=== PATIENT | female | born 1955 | race Two or more races ===

== ENCOUNTER 2017-10-23 08:59 | Outpatient (CLI) | payer OTHER | END 2017-10-23 09:07 | disposition home or self-care (01) | LOC: RAD 501 08:59 | DX: J30.89 Other allergic rhinitis (principal); R05 Cough; R06.00 Dyspnea, unspecified ==

== ENCOUNTER 2018-05-14 15:48 | Outpatient (CLI) | payer OTHER | END 2018-05-14 16:14 | disposition home or self-care (01) | LOC: LAB 15:48 | DX: N30.00 Acute cystitis without hematuria (principal); R31.29 Other microscopic hematuria ==

== ENCOUNTER → 2018-05-15 15:00 | Outpatient (CLI) | payer OTHER | END | disposition home or self-care (01) | LOC: EDBD 15:00 → LAB 15:00 | DX: N30.00 Acute cystitis without hematuria (principal); R31.29 Other microscopic hematuria ==

== ENCOUNTER 2018-05-18 08:21 | Outpatient (CLI) | payer OTHER | END 2018-05-18 08:36 | disposition home or self-care (01) | LOC: TOM 08:21 | DX: R31.0 Gross hematuria (principal) ==

== ENCOUNTER 2018-05-28 05:55 | Day surgery (SDC) | payer OTHER | END 2018-05-28 12:05 | disposition home or self-care (01) | LOC: EDBD → CIR.AMB 05:55 | DX: C67.4 Malignant neoplasm of posterior wall of bladder (principal) ==

== ENCOUNTER 2018-06-11 14:54 | Outpatient (CLI) | payer OTHER | END 2018-06-11 15:00 | disposition home or self-care (01) | LOC: LAB 14:54 | DX: N30.00 Acute cystitis without hematuria (principal) ==

== ENCOUNTER 2018-09-06 07:38 | Outpatient (CLI) | payer OTHER | END 2018-09-06 13:20 | disposition home or self-care (01) | LOC: LAB 07:38 | DX: E03.8 Other specified hypothyroidism (principal); D50.8 Other iron deficiency anemias; E78.2 Mixed hyperlipidemia; I11.9 Hypertensive heart disease without heart failure; E56.8 Deficiency of other vitamins; N39.0 Urinary tract infection, site not specified; Z12.11 Encounter for screening for malignant neoplasm of colon; E55.9 Vitamin D deficiency, unspecified; N19 Unspecified kidney failure; E11.9 Type 2 diabetes mellitus without complications; R80.8 Other proteinuria; C18.0 Malignant neoplasm of cecum; K92.1 Melena ==

== ENCOUNTER 2018-09-07 10:19 | Outpatient (CLI) | payer OTHER | END 2018-09-07 10:29 | disposition home or self-care (01) | LOC: LAB 10:19 | DX: D50.8 Other iron deficiency anemias (principal); E03.8 Other specified hypothyroidism; E78.2 Mixed hyperlipidemia; I11.9 Hypertensive heart disease without heart failure; E56.8 Deficiency of other vitamins; N39.0 Urinary tract infection, site not specified; Z12.11 Encounter for screening for malignant neoplasm of colon; E55.9 Vitamin D deficiency, unspecified; N19 Unspecified kidney failure; E11.9 Type 2 diabetes mellitus without complications; R80.8 Other proteinuria; C18.0 Malignant neoplasm of cecum; K92.1 Melena ==

== ENCOUNTER → 2018-10-18 | Outpatient (CLI) | payer OTHER | END | disposition home or self-care (01) | LOC: MAMO-SONO 10:27 | DX: N60.11 Diffuse cystic mastopathy of right breast (principal); N60.12 Diffuse cystic mastopathy of left breast; Z12.31 Encounter for screening mammogram for malignant neoplasm of breast ==

== ENCOUNTER 2019-12-01 14:43 | Emergency (ER) | payer OTHER ==
[~2019-12-01] VITALS: Ht 172.7 cm; Wt 117.9 kg
[2019-12-01] MEDS ORDERED: FENOFIBRATE160 MG PO (15:19)
[2019-12-01] MEDS ORDERED: LOSARTAN POTASS50 MG PO (15:20)
[2019-12-01] MEDS ORDERED: OPTIMAL D31250 MCG PO (15:20)
[2019-12-01] MEDS ORDERED: KETO10TA2 PO (21:16)
== END 2019-12-01 21:25 | disposition home or self-care (01) ==
LOC: ER 14:43
DX: M25.562 Pain in left knee (principal)

== ENCOUNTER → 2020-02-15 12:26 | Outpatient (CLI) | payer OTHER ==
[~2020-02-15 12:26] MED LIST: FENOFIBRATE160 MG PO; KETO10TA2 PO; LOSARTAN POTASS50 MG PO; OPTIMAL D31250 MCG PO
== END | disposition home or self-care (01) ==
LOC: LAB 12:26
PROVIDERS: ATTEND Urology
DX: R31.1 Benign essential microscopic hematuria (principal)

== ENCOUNTER 2020-02-16 07:27 | Outpatient (CLI) | payer OTHER | END 2020-02-16 07:44 | disposition home or self-care (01) | LOC: TOM 07:27 | PROVIDERS: ATTEND Urology | DX: R31.0 Gross hematuria (principal); C67.8 Malignant neoplasm of overlapping sites of bladder ==

== ENCOUNTER → 2020-05-14 | Outpatient (CLI) | payer OTHER | END | disposition home or self-care (01) | LOC: MRI 14:45 | PROVIDERS: ATTEND Orthopaedic Surgery | DX: M25.461 Effusion, right knee (principal); M25.561 Pain in right knee | CPT/HCPCS: 73721 ==

== ENCOUNTER 2021-06-12 15:36 | Outpatient (CLI) | payer OTHER | END 2021-06-12 15:42 | disposition home or self-care (01) | LOC: LAB 15:36 | PROVIDERS: ATTEND Radiology Diagnostic Radiology | DX: C67.9 Malignant neoplasm of bladder, unspecified (principal) ==

== ENCOUNTER 2021-06-18 08:46 | Outpatient (CLI) | payer OTHER | END 2021-06-18 09:00 | disposition home or self-care (01) | LOC: TOM 08:46 | PROVIDERS: ATTEND Urology | DX: C67.9 Malignant neoplasm of bladder, unspecified (principal) ==

== ENCOUNTER 2021-09-20 06:49 | Day surgery (SDC) | payer OTHER | END 2021-09-20 13:55 | disposition home or self-care (01) | LOC: CIR.AMB 06:49 | PROVIDERS: ATTEND Urology | DX: N30.20 Other chronic cystitis without hematuria (principal); Z20.822 Contact with and (suspected) exposure to COVID-19; I10 Essential (primary) hypertension; Z86.16 Personal history of COVID-19; Z87.891 Personal history of nicotine dependence; E66.9 Obesity, unspecified; C67.4 Malignant neoplasm of posterior wall of bladder ==

== ENCOUNTER 2021-12-28 07:36 | Outpatient (CLI) | payer OTHER | END 2021-12-28 23:00 | disposition home or self-care (01) | LOC: LAB 07:36 | PROVIDERS: ATTEND Internal Medicine Geriatric Medicine | DX: D50.9 Iron deficiency anemia, unspecified (principal); E03.9 Hypothyroidism, unspecified; E78.2 Mixed hyperlipidemia; I11.9 Hypertensive heart disease without heart failure; N39.0 Urinary tract infection, site not specified; Z12.11 Encounter for screening for malignant neoplasm of colon; R19.5 Other fecal abnormalities; E55.9 Vitamin D deficiency, unspecified; N19 Unspecified kidney failure; E11.9 Type 2 diabetes mellitus without complications ==

== ENCOUNTER 2022-01-27 07:20 | Outpatient (CLI) | payer OTHER | END 2022-01-27 07:28 | disposition home or self-care (01) | LOC: LAB 07:20 | PROVIDERS: ATTEND Urology | DX: R31.1 Benign essential microscopic hematuria (principal); N30.00 Acute cystitis without hematuria ==

== ENCOUNTER 2022-01-29 07:18 | Outpatient (CLI) | payer OTHER | END 2022-01-29 15:12 | disposition home or self-care (01) | LOC: TOM 07:18 | PROVIDERS: ATTEND Urology | DX: C67.9 Malignant neoplasm of bladder, unspecified (principal) ==

== ENCOUNTER → 2022-06-16 07:11 | Outpatient (CLI) | payer OTHER | END | disposition home or self-care (01) | LOC: LAB 07:11 | PROVIDERS: ATTEND Internal Medicine Geriatric Medicine | DX: D50.9 Iron deficiency anemia, unspecified (principal); E03.9 Hypothyroidism, unspecified; E78.2 Mixed hyperlipidemia; I11.9 Hypertensive heart disease without heart failure; E56.8 Deficiency of other vitamins; N39.0 Urinary tract infection, site not specified; Z12.11 Encounter for screening for malignant neoplasm of colon; R19.5 Other fecal abnormalities; E55.9 Vitamin D deficiency, unspecified; N19 Unspecified kidney failure; E11.9 Type 2 diabetes mellitus without complications ==

== ENCOUNTER 2022-07-01 12:46 | Outpatient (CLI) | payer OTHER | END 2022-07-01 12:52 | disposition home or self-care (01) | LOC: MAMO-SONO 12:46 | PROVIDERS: ATTEND Internal Medicine Geriatric Medicine | DX: Z12.31 Encounter for screening mammogram for malignant neoplasm of breast (principal); C50.919 Malignant neoplasm of unspecified site of unspecified female breast; N63.0 Unspecified lump in unspecified breast; N64.4 Mastodynia; N60.12 Diffuse cystic mastopathy of left breast; N60.11 Diffuse cystic mastopathy of right breast ==

== ENCOUNTER 2022-08-01 13:23 | Outpatient (CLI) | payer OTHER | END 2022-08-01 13:44 | disposition home or self-care (01) | LOC: SONOGRAMA 13:23 | PROVIDERS: ATTEND Surgery | DX: N60.11 Diffuse cystic mastopathy of right breast (principal) ==

== ENCOUNTER 2022-09-30 06:12 | Outpatient (CLI) | payer OTHER | END 2022-09-30 06:24 | disposition home or self-care (01) | LOC: LAB 06:12 | PROVIDERS: ATTEND Internal Medicine | DX: C50.811 Malignant neoplasm of overlapping sites of right female breast (principal) ==

== ENCOUNTER 2022-10-01 07:11 | Outpatient (CLI) | payer OTHER | END 2022-10-01 07:16 | disposition home or self-care (01) | LOC: NUCLEAR 07:11 | PROVIDERS: ATTEND Internal Medicine | DX: C50.811 Malignant neoplasm of overlapping sites of right female breast (principal) ==

== ENCOUNTER 2022-10-02 07:33 | Outpatient (CLI) | payer OTHER | END 2022-10-02 07:58 | disposition home or self-care (01) | LOC: TOM 07:33 | PROVIDERS: ATTEND Internal Medicine | DX: C50.811 Malignant neoplasm of overlapping sites of right female breast (principal) ==

== ENCOUNTER 2022-12-03 13:31 | Emergency (ER) | payer OTHER ==
[~2022-12-03] VITALS: Ht 175.3 cm; Wt 98.9 kg
[2022-12-03] MEDS ORDERED: ZOFRAN8 MG PO (20:55)
[2022-12-03] MEDS ORDERED: PEPCID20 MG PO (20:55)
== END 2022-12-03 21:16 | disposition home or self-care (01) ==
LOC: ER 13:31
PROVIDERS: General Practice
DX: K29.00 Acute gastritis without bleeding (principal); Z20.822 Contact with and (suspected) exposure to COVID-19

== ENCOUNTER → 2023-05-14 07:48 | Outpatient (CLI) | payer OTHER ==
[~2023-05-14 07:48] MED LIST changes: +PEPCID20 MG PO; +ZOFRAN8 MG PO
[2023-05-14 08:30] LABS: PH,URINE 5.5 (5.0-8.0); URINE APPEARANCE Clear; URINE BACTERIA 25.1 uL (0.0-1933); URINE BILIRRUBIN Negative (NEGATIVE); URINE BLOOD Large; URINE COLOR Yellow; URINE GLUCOSE Negative (NEGATIVE); URINE LEUKOCYTE Trace; URINE NITRATE Negative; URINE PROTEIN Negative (NEGATIVE); URINE RBC 243.4 uL (0.0-20.8); URINE UROBILINOGEN 0.2 E.U./dl
[2023-05-14 08:31] LABS: HEMATOCRIT 28.5 % (36.0-45.00); HEMOGLOBIN 9.7 g/dL (12.0-15.00); MEAN CELL VOLUME 86.4 fL (80.00-100.00); MEAN CORPUSCULAR HEMOGLOBIN 29.5 pg (27.00-32.0); MEAN CORPUSCULAR HGB CONC 34.1 g/dl (32.0-36.0); PLATELET COUNT 229 K/uL (150-450); RED CELL DISTRIBUTION WIDTH 13.7 % (11.5-14.5)
[2023-05-14 09:15] LABS: ALBUMIN 3.9 gm/dL (3.4-5.0); BILIRUBIN TOTAL 0.37 mg/dL (0.3-1.2); CALCIUM 9.1 mg/dL (8.5-10.1); CHOL HDL RATIO 2.3 (0-5.0); CREATININE SERUM 2.82 mg/dL (0.55-1.02); GFR 16.62; GLOBULINA 3.1 G/DL (2.4-3.5); POTASSIUM 4.37 mEq/L (3.5-5.1); TSH 2.51 uIU/mL (0.358-3.74)
== END | disposition home or self-care (01) ==
LOC: LAB 07:48
PROVIDERS: ATTEND Internal Medicine Geriatric Medicine
DX: D50.9 Iron deficiency anemia, unspecified (principal); E03.9 Hypothyroidism, unspecified; E78.2 Mixed hyperlipidemia; I11.9 Hypertensive heart disease without heart failure; E56.8 Deficiency of other vitamins; N39.0 Urinary tract infection, site not specified; Z12.11 Encounter for screening for malignant neoplasm of colon; R19.5 Other fecal abnormalities; E55.9 Vitamin D deficiency, unspecified; N19 Unspecified kidney failure; E11.9 Type 2 diabetes mellitus without complications

== ENCOUNTER 2023-05-22 07:14 | Outpatient (CLI) | payer OTHER ==
[~2023-05-22 07:14] MED LIST changes: +ANASTROZOLE1 MG PO
[2023-05-22 08:02] LABS: CALCIUM 9.3 mg/dL (8.5-10.1); CREATININE SERUM 1.82 mg/dL (0.55-1.02); GFR 27.54; POTASSIUM 4.39 mEq/L (3.5-5.1)
== END 2023-05-22 07:20 | disposition home or self-care (01) ==
LOC: LAB 07:14
PROVIDERS: ATTEND Internal Medicine Geriatric Medicine
DX: N19 Unspecified kidney failure (principal)

== ENCOUNTER 2023-06-29 13:31 | Inpatient (IN) | payer OTHER ==
[~2023-06-29] VITALS: Ht 172.7 cm; Wt 104.3 kg
[2023-06-29] MEDS ORDERED: 0.9 % SODIUM CHLORIDE 1,000 ML IV SCH ×2 (13:45→14:30)
[2023-06-29] MEDS ORDERED: FAMOTIDINE/PF 20 MG in 0.9 % SODIUM CHLORIDE 8 ML IV PUSH STA (14:21)
[2023-06-29 14:23] LABS: MEAN CELL VOLUME 84.5 fL (80.00-100.00); MEAN CORPUSCULAR HGB CONC 33.5 g/dl (32.0-36.0); PLATELET COUNT 487 K/uL (150-450); RED BLOOD COUNT 2.76 M/uL (4.00-6.00); RED CELL DISTRIBUTION WIDTH 13.8 % (11.5-14.5)
[2023-06-29 14:26] LABS: HEMOGLOBIN 7.8 g/dL (12.0-15.00); MEAN CORPUSCULAR HEMOGLOBIN 28.2 pg (27.00-32.0)
[2023-06-29 14:27] LABS: HEMATOCRIT 23.4 % (36.0-45.00)
[2023-06-29] MEDS ORDERED: CEFTRIAXONE SODIUM 2,000 MG VIAL IV ONE (14:30)
[2023-06-29] MEDS ORDERED: SOD FERRIC GLUC COMPLX/SUCROSE 62.5 MG in 0.9 % SODIUM CHLORIDE 50 ML IV SCH (14:32)
[2023-06-29 14:46] LABS: INR 1.22; PARTIAL THROMBOPLASTIN TIME 29.1 SECONDS (22.0-34.0); PROTHROMBIN TIME 12.6 SECONDS (9.0-11.5)
[2023-06-29 14:52] LABS: ALBUMIN 2.2 gm/dL (3.4-5.0); BILIRUBIN TOTAL 0.49 mg/dL (0.3-1.2); CALCIUM 9.5 mg/dL (8.5-10.1); CREATININE SERUM 2.07 mg/dL (0.55-1.02); GFR 23.74; GLOBULINA 6.2 G/DL (2.4-3.5); POTASSIUM 3.69 mEq/L (3.5-5.1); TOTAL PROTEIN 8.4 gm/dL (6.4-8.2)
[2023-06-29 16:38] LABS: URINE APPEARANCE Turbid; URINE BILIRRUBIN Negative (NEGATIVE); URINE BLOOD Moderate; URINE COLOR Yellow; URINE GLUCOSE Negative (NEGATIVE); URINE LEUKOCYTE Large; URINE NITRATE Positive; URINE PROTEIN 30 (NEGATIVE); URINE UROBILINOGEN 0.2 E.U./dl
[2023-06-29 16:39] LABS: URINE EPITHELIAL CELLS 29.8 uL (0.0-38.8); URINE RBC 37.6 uL (0.0-20.8)
[2023-06-29 16:59] LABS: URINE BACTERIA > 9821.5 uL (0.0-1933); URINE WBC > 5548.3 uL (0.0-23.2)
[2023-06-29] MEDS ORDERED: ENOXAPARIN SODIUM 30 MG/0.3 ML SYRINGE SUBCUTANEO SCH (17:00)
[2023-06-30 11:10] LABS: CALCIUM 8.4 mg/dL (8.5-10.1); CREATININE SERUM 1.72 mg/dL (0.55-1.02); GFR 29.4; MAGNESIUM 1.5 mg/dL (1.8-2.4); PHOSPHOROUS 3.6 mg/dL (2.5-4.9); POTASSIUM 4.23 mEq/L (3.5-5.1)
[2023-06-30 11:11] LABS: C-REACTIVE PROTEIN 11.4 MG/DL (0.00-0.29)
[2023-06-30] MEDS ORDERED: CEFTRIAXONE SODIUM 2,000 MG VIAL IV SCH (17:00)
[2023-06-30] MEDS ORDERED: ACETAMINOPHEN 500 MG GEL..CAP PO PRN (18:00)
[2023-07-01 02:12] LABS: HEMATOCRIT 28.3 % (36.0-45.00); MEAN CELL VOLUME 85.5 fL (80.00-100.00); MEAN CORPUSCULAR HEMOGLOBIN 29.3 pg (27.00-32.0); MEAN CORPUSCULAR HGB CONC 34.3 g/dl (32.0-36.0); PLATELET COUNT 406 K/uL (150-450); RED BLOOD COUNT 3.31 M/uL (4.00-6.00)
[2023-07-01 02:29] LABS: HEMOGLOBIN 9.7 g/dL (12.0-15.00)
[2023-07-01 02:46] LABS: ALBUMIN 1.9 gm/dL (3.4-5.0); BILIRUBIN TOTAL 0.57 mg/dL (0.3-1.2); CALCIUM 8.4 mg/dL (8.5-10.1); CREATININE SERUM 1.39 mg/dL (0.55-1.02); GFR 37.59; GLOBULINA 4.2 G/DL (2.4-3.5); MAGNESIUM 1.5 mg/dL (1.8-2.4); POTASSIUM 4.01 mEq/L (3.5-5.1); TOTAL PROTEIN 6.1 gm/dL (6.4-8.2)
[2023-07-01 06:46] LABS: PH,URINE 5.5 (5.0-8.0); URINE APPEARANCE Turbid; URINE BILIRRUBIN Negative (NEGATIVE); URINE BLOOD Large; URINE COLOR Yellow; URINE GLUCOSE Negative (NEGATIVE); URINE LEUKOCYTE Large; URINE NITRATE Negative; URINE PROTEIN 30 (NEGATIVE); URINE UROBILINOGEN 0.2 E.U./dl
[2023-07-01 06:47] LABS: URINE BACTERIA 1359.5 uL (0.0-1933); URINE RBC 77.3 uL (0.0-20.8); URINE WBC 5024.6 uL (0.0-23.2)
[2023-07-01] MEDS ORDERED: AMINO ACIDS/PROTEIN HYDROLYS 30 ML BLIST.PACK PO SCH ×2 (10:00→17:00)
[2023-07-02] MEDS ORDERED: POLYETHYLENE GLYCOL 3350 17 GM BLIST.PACK PO STA (08:29)
[2023-07-02 15:39] LABS: HEMATOCRIT 31.8 % (36.0-45.00); HEMOGLOBIN 10.6 g/dL (12.0-15.00); MEAN CELL VOLUME 85.5 fL (80.00-100.00); MEAN CORPUSCULAR HEMOGLOBIN 28.4 pg (27.00-32.0); MEAN CORPUSCULAR HGB CONC 33.2 g/dl (32.0-36.0); PLATELET COUNT 442 K/uL (150-450); RED BLOOD COUNT 3.72 M/uL (4.00-6.00); RED CELL DISTRIBUTION WIDTH 14.7 % (11.5-14.5)
[2023-07-02 16:32] LABS: CALCIUM 9.1 mg/dL (8.5-10.1); CREATININE SERUM 1.31 mg/dL (0.55-1.02); GFR 40.25; MAGNESIUM 1.5 mg/dL (1.8-2.4); PHOSPHOROUS 4.1 mg/dL (2.5-4.9); POTASSIUM 4.31 mEq/L (3.5-5.1)
[2023-07-02] MEDS ORDERED: POLYETHYLENE GLYCOL 3350 17 GM BLIST.PACK PO SCH (21:00)
[2023-07-03] MEDS ORDERED: MAGNESIUM SULFATE IN WATER 50 ML IV ONE (06:30)
[2023-07-03] MEDS ORDERED: AMLODIPINE BESYLATE 5 MG TABLET PO SCH (09:00)
[2023-07-03] MEDS ORDERED: ABANEU-SL TABL1 EACH SL (17:28)
[2023-07-03] MEDS ORDERED: CEFADROXIL500 MG PO (17:28)
[2023-07-03] MEDS ORDERED: FUSION PLUS CA1 EACH PO (17:28)
== END 2023-07-03 21:20 | disposition home or self-care (01) | DRG 690 ==
LOC: ER 13:31 → MEDI 15:39 → SEC-K 15:39 → MEDI 17:13
PROVIDERS: General Practice; Internal Medicine Infectious Disease; ADMIT Internal Medicine Geriatric Medicine; ATTEND Internal Medicine Geriatric Medicine
DX: N39.0 Urinary tract infection, site not specified (principal); N17.9 Acute kidney failure, unspecified; B96.20 Unspecified Escherichia coli [E. coli] as the cause of diseases classified elsewhere; D64.9 Anemia, unspecified; E78.5 Hyperlipidemia, unspecified; C67.9 Malignant neoplasm of bladder, unspecified; I12.9 Hypertensive chronic kidney disease with stage 1 through stage 4 chronic kidney disease, or unspecified chronic kidney disease; E11.22 Type 2 diabetes mellitus with diabetic chronic kidney disease; N18.9 Chronic kidney disease, unspecified; Z79.4 Long term (current) use of insulin; Z20.822 Contact with and (suspected) exposure to COVID-19

== ENCOUNTER 2023-10-30 11:48 | Outpatient (CLI) | payer OTHER ==
[~2023-10-30 11:48] MED LIST changes: +ABANEU-SL TABL1 EACH SL; +AROMASIN25 MG; +CEFADROXIL500 MG PO; +COZAAR50 MG PO; +DICLOFENAC POTA50 MG PO; +DOLOGEN CAPLET1 EACH PO; +FUSION PLUS CA1 EACH PO; +NORVASC5 MG; +PAXLOVID 300-11 EAC1 PO; +PEPCID AC20 MG PO; +TUSNEL LIQUID178 ML PO; +ULTRAM50 MG PO; +VALACYCLOVIR1000 MG PO
== END 2023-10-30 12:08 | disposition home or self-care (01) ==
LOC: SONOGRAMA 11:48
DX: N17.8 Other acute kidney failure (principal); N17.9 Acute kidney failure, unspecified

== ENCOUNTER 2024-03-21 12:59 | Outpatient (CLI) | payer OTHER | END 2024-03-21 13:28 | disposition home or self-care (01) | LOC: MAMO-SONO 12:59 | DX: C50.911 Malignant neoplasm of unspecified site of right female breast (principal); Z12.31 Encounter for screening mammogram for malignant neoplasm of breast ==

== ENCOUNTER 2024-03-22 08:45 | Outpatient (CLI) | payer OTHER | END 2024-03-22 08:46 | disposition home or self-care (01) | LOC: NUCLEAR 08:45 | DX: I65.29 Occlusion and stenosis of unspecified carotid artery (principal); I65.23 Occlusion and stenosis of bilateral carotid arteries; M81.0 Age-related osteoporosis without current pathological fracture ==

== ENCOUNTER 2024-10-31 09:08 | Outpatient (CLI) | payer OTHER | END 2024-10-31 09:17 | disposition home or self-care (01) | LOC: SONOGRAMA 09:08 | PROVIDERS: ATTEND Urology | DX: R33.9 Retention of urine, unspecified (principal); C67.9 Malignant neoplasm of bladder, unspecified ==

== ENCOUNTER 2025-01-18 20:26 | Emergency (ER) | payer OTHER ==
[~2025-01-18] VITALS: Ht 172.7 cm; Wt 97.5 kg
[2025-01-18] MEDS ORDERED: DIATRIZOATE MEGLUMINE, SODIUM 30 ML BOTTLE ONE (20:58)
[2025-01-18] MEDS ORDERED: LIPITOR40 M1 (21:10)
[2025-01-18 23:42] LABS: BASO % 0.4 % (0.1-1.2); EOS # 0.16 (0.04-0.54); EOS % 1.6 % (0.7-7.0); LYMPH # 2.30 (1.18-3.74); LYMPH % 22.4 % (19.3-53.1); MEAN PLATELET VOLUME 11.90 fl (9.4-12.4); MONO # 0.82 (0.24-0.82); MONO % 8.0 % (4.7-12.5); NEUT # 6.86 (1.56-6.13); NEUT % 66.9 % (34.0-71.1); RED CELL DISTRIBUTION WIDTH 13.3 % (11.6-14.4)
[2025-01-18 23:57] LABS: URINE APPEARANCE Cloudy; URINE BILIRRUBIN Negative (NEGATIVE); URINE BLOOD Moderate; URINE COLOR Yellow; URINE GLUCOSE Negative (NEGATIVE); URINE KETONE Negative (NEGATIVE); URINE LEUKOCYTE Large; URINE NITRATE Negative; URINE UROBILINOGEN 0.2 E.U./dl
[2025-01-18 23:58] LABS: URINE BACTERIA 481.1 uL (0.0-1933); URINE CAST 6.45 uL (0.0-1.40); URINE EPITHELIAL CELLS 9.0 uL (0.0-38.8); URINE RBC 41.3 uL (0.0-20.8); URINE WBC 1752.7 uL (0.0-23.2)
[2025-01-18 23:59] LABS: INR 1.09
[2025-01-19 00:05] LABS: ALT/SGPT 31.0 U/L (12-78); AST/SGOT 17.0 U/L (15-37); BILIRUBIN TOTAL 0.54 mg/dL (0.3-1.2); BILIRUBIN,CONJUGATED 0.17 mg/dL (0.0-0.2); BUN CREA RATIO 16.0 (7.0-25.0); CREATININE SERUM 1.69 mg/dL (0.55-1.02); GFR 29.83; GLOBULINA 4.5 G/DL (2.4-3.5); GLUCOSE FASTING 102.0 mg/dL (65-100); OSMOLALITY SERUM 285.0 MOSM/KG (275-295)
[2025-01-19 00:12] LABS: URINE PROTEIN 100 (NEGATIVE)
== END 2025-01-19 00:52 | disposition home or self-care (01) ==
LOC: ER 20:26
PROVIDERS: General Practice
DX: N39.0 Urinary tract infection, site not specified (principal); R10.9 Unspecified abdominal pain; R33.9 Retention of urine, unspecified
CPT/HCPCS: 36415; 74177; 99284; Q9965

== ENCOUNTER 2025-03-24 09:00 | Day surgery (SDC) | payer OTHER ==
[2025-03-22 08:55] LABS: BASO % 0.6 % (0.1-1.2); EOS # 0.18 (0.04-0.54); EOS % 2.8 % (0.7-7.0); LYMPH # 1.38 (1.18-3.74); LYMPH % 21.4 % (19.3-53.1); MEAN PLATELET VOLUME 11.50 fl (9.4-12.4); MONO # 0.46 (0.24-0.82); MONO % 7.1 % (4.7-12.5); NEUT # 4.37 (1.56-6.13); NEUT % 67.8 % (34.0-71.1); RED CELL DISTRIBUTION WIDTH 13.8 % (11.6-14.4)
[2025-03-22 09:02] LABS: COVID-19 AG NEGATIVE (NEGATIVE)
[2025-03-22 09:04] LABS: URINE APPEARANCE Turbid; URINE BILIRRUBIN Negative (NEGATIVE); URINE BLOOD Moderate; URINE CAST 1.98 uL (0.0-1.40); URINE COLOR Yellow; URINE EPITHELIAL CELLS 9.8 uL (0.0-38.8); URINE GLUCOSE Negative (NEGATIVE); URINE KETONE Negative (NEGATIVE); URINE LEUKOCYTE Large; URINE NITRATE Positive; URINE PROTEIN 30 (NEGATIVE); URINE RBC 120.8 uL (0.0-20.8); URINE UROBILINOGEN 0.2 E.U./dl
[2025-03-22 09:17] LABS: INR 1.02
[2025-03-22 09:21] LABS: URINE BACTERIA > 9821.5 uL (0.0-1933)
[2025-03-22 09:23] LABS: URINE CRYSTALS FEW /HPF
[2025-03-22 09:50] LABS: BUN CREA RATIO 25.0 (7.0-25.0); CREATININE SERUM 1.3 mg/dL (0.55-1.02); GFR 40.38; GLUCOSE FASTING 92.0 mg/dL (65-100); OSMOLALITY SERUM 293.0 MOSM/KG (275-295)
[~2025-03-24 09:00] MED LIST changes: +LIPITOR40 M1
[2025-03-24] MEDS ORDERED: GENTAMICIN SULFATE 40 MG/ML VIAL ONE (09:41)
[2025-03-24] MEDS ORDERED: CHLORHEXIDINE GLUCONATE 120 ML BOTTLE TOP ONE (11:47)
== END 2025-03-24 14:50 | disposition home or self-care (01) ==
LOC: CIR.AMB 09:00
PROVIDERS: ATTEND Urology
DX: N32.0 Bladder-neck obstruction (principal); R33.9 Retention of urine, unspecified